=== PATIENT | female | born 1975 | race Caucasian/White ===

== ENCOUNTER → 2018-03-24 | Day surgery (SDC) | payer BC ==
[~2018-03-24] MED LIST: ADDERALL 15 MG15 MG PO; CYMBALTA30 MG PO; FENTANYL CITRATE/PF 100MCG/2 ML INJ ONE; HYOSCYAMINE SULFATE 0.5 MG/ML INJ ONE; MIDAZOLAM HCL 2 MG/2 ML VIAL ONE; MULTI-VITAMIN1 EACH PO; PROPOFOL IV EMULSION 10 MG/ML 50 ML VIAL ONE; SYMBICORT 16010.2 GM INH; VIT D3 PO; VYVANSE60 MG PO
[2018-03-24 11:00] VITALS: BP 120/71
--- NOTE | 2018-03-24 14:09 | Operative Report ---
DATE OF PROCEDURE: March 24, 2018 REFERRING PHYSICIAN: Dr. Vincenzo Gimenez PROCEDURES PERFORMED 1. Esophagogastroduodenoscopy with biopsies. 2. Colonoscopy with polypectomy. INDICATIONS FOR EGD: Upper abdominal pain and bloating. INDICATIONS FOR COLONOSCOPY: Rectal bleeding and constipation. MEDICATION: Patient was done under MAC. Please see anesthesiologist's note. PROCEDURE: With the patient in the left lateral decubitus position, the flexible fiberoptic Olympus gastroscope was introduced into the esophagus under direct visualization without any difficulty. There was some patchy erythema noted in the distal esophagus. The scope was then advanced with ease into the stomach. Mucosa overlying the antrum and the body revealed some patchy erythema and low-grade to moderate edema, and biopsies were obtained and sent to stain for H. pylori. The pylorus was of normal contour and shape. It was intubated with ease. The scope was advanced all the way to the 2nd portion of the duodenum. Biopsies were obtained from the proximal 2nd portion to rule out sprue. The scope was then withdrawn back into the stomach and retroflexed. Mucosa overlying the fundus and the cardia appeared to be within normal limits. The scope was then straightened out. The stomach was decompressed. The scope was subsequently withdrawn. Patient tolerated the procedure well. IMPRESSION 1. Distal esophagitis, mild. 2. Gastritis, biopsied. Biopsies sent to stain for Helicobacter pylori. 3. Rule out sprue. PLAN: Follow up histology. Initiate Protonix 40 mg 1 p.o. q.a.m. a.c. Patient was then turned around. After adequate lubrication of the anal canal, a flexible fiberoptic Olympus colonoscope was inserted into the rectum with ease and advanced all the way to the cecum. An approximately 2.5 cm extrinsic compression was noted along the medial wall of the cecum just below the ileocecal valve. The scope was then withdrawn slowly. Mucosa overlying the ascending, transverse, descending, and sigmoid colon appeared to be within normal limits. One polyp was removed per hot biopsy forceps from the rectum. The scope was then retroflexed into the distal rectum and small internal hemorrhoids were noted, none of which was actively bleeding. The scope was then straightened out. It was subsequently withdrawn. Patient tolerated the procedure well. IMPRESSION 1. Approximately, 2.5 cm extrinsic compression medial wall of the cecum just below the ileocecal valve. 2. Rectal polyp, hot biopsied. 3. Internal hemorrhoids, none actively bleeding. PLAN: Follow up histology. Start VSL #3 one p.o. daily. Pelvic ultrasound if not done recently. Patient might benefit from a followup colonoscopy in 5 years. Job#: [id number] RI cc:VINCENZO GIMENEZ MD
== END | disposition home or self-care (01) ==
LOC: OR 07:49
PROVIDERS: ATTEND Internal Medicine Gastroenterology
DX: K59.00 Constipation, unspecified (principal); K62.1 Rectal polyp; K29.70 Gastritis, unspecified, without bleeding; K20.9 Esophagitis, unspecified; K63.89 Other specified diseases of intestine; K64.8 Other hemorrhoids; K62.5 Hemorrhage of anus and rectum; F98.8 Other specified behavioral and emotional disorders with onset usually occurring in childhood and adolescence; F32.9 Major depressive disorder, single episode, unspecified; F41.9 Anxiety disorder, unspecified; F17.210 Nicotine dependence, cigarettes, uncomplicated; Z88.8 Allergy status to other drugs, medicaments and biological substances
CPT/HCPCS: 43239; 45384; J1980; J2250